=== PATIENT | female | born 1940 | race Caucasian/White ===

== ENCOUNTER → 2023-10-16 10:17 | Outpatient (REF) | payer OTHER, MEDICARE, SELFPAY ==
[2023-10-16 11:23] LABS: Vancomycin Trough 11.3 ug/ml (5-20)
[2023-10-16 11:46] LABS: Hematocrit 23.2 % (37.0-47.0); Hemoglobin 7.4 g/dL (12.0-16.0); Mean Corp Hgb Conc. 31.9 g/dL (33.0-37.0); Mean Corpuscular Hgb 27.6 pg (27.0-31.0); Mean Corpuscular Volume 86.6 fL (81.0-99.0); Mean Platelet Volume 9.5 fL (7.4-10.4); Platelet Count 588 10^3/uL (130-400); Red Blood Cell Count 2.68 10^6/uL (4.20-5.40); Red Cell Dist. Width 16.5 % (11.5-14.5); White Blood Cell Count 8.3 10^3/uL (4.8-10.8)
[2023-10-16 12:01] LABS: ALT (SGPT) 20 U/L (0-35); AST (SGOT) 27 U/L (14-36); Alkaline Phosphatase 92 U/L (38-126); Calcium 9.1 mg/dl (8.4-10.2); Carbon Dioxide 31 mmol/L (22-30); Chloride 98 mmol/L (98-107); Glucose 88 mg/dl (70-99); eGFR > 60.00
[2023-10-16 12:12] LABS: Albumin 2.1 g/dl (3.5-5.0); Blood Urea Nitrogen 13 mg/dl (7-17); Magnesium 1.9 mg/dl (1.6-2.3); Sodium 133 mmol/L (135-145); Total Bilirubin 0.2 mg/dl (0.2-1.3); Total Protein 4.3 g/dl (6.3-8.2)
== END ==
LOC: OLABWHC 10:17
PROVIDERS: ATTENDING PHYSICIAN Internal Medicine
DX: E87.6 Hypokalemia (principal); D72.829 Elevated white blood cell count, unspecified; Z79.2 Long term (current) use of antibiotics; I82.629 Acute embolism and thrombosis of deep veins of unspecified upper extremity
CPT/HCPCS: 36415; 80053; 80202; 83735; 85027

== ENCOUNTER 2023-10-24 14:07 | Inpatient (IN) | payer MEDICARE, SELFPAY ==
[2023-10-22] VITALS (7 sets, daily range): BP systolic 101–157; BP diastolic 52–86; BMI 19.6
--- NOTE | 2023-10-22 15:35 | ED.GENMED ---
History of Present Illness
General
Chief Complaint: Fever
Source: family and longterm
Exam Limitations: none
Time Seen by Provider: 10/22/23 15:09
Nursing documentation reviewed up to this point in time: agreed with
Travel History
Have you had any contact with someone who has COVID-19?: Unable to Answer
Do you have any symptoms of coronavirus? Fever > 100 degrees, chills, cough, shortness of breath, sore throat, loss of taste or smell, muscle aches, or headache?: Yes
Symptoms:: see triage note
History of Present Illness
History of Present Illness:
Patient to ED via EMS from longterm for concern of fever, bleeding from left leg wound. According to daughter, patient had MILD procedure in mid July for her chronic back pain. She was admitted to [facility] on Sep.09 for neck pain. After
xray, CT, MRI, labs, family was told patient had a small cyst in neck which was thought to be an abscess. She was placed on 2 antibiotics via PICC to left arm. According to daughter, patient developed a superficial clot to her arm and did not
require blood thinners, PICC was moved to [facility]. Diagnosed with pleural effusion and had thoracentesis x2. Afte 3 weeks at [facility] she was transported to [facility] [place]. 1 week later she returned to [facility] with fever. Family was told infection was now
noted in lumbar region and antibiotics were again prescribed. She was also noted to have increased swelling to her hands. US revealed DVT RUE. Placed on Eliquis approx 1 week ago. SHe was sent to [place] for rehab 1 week ago. 2 days ago she
fell, sustaining a skin tear to her left calf. Wound continues to ooze. Today she was noted to have a fever and descision was made to transfer to ED. Family did not want her to return to [facility]. Daughter state that since her first admission her lab
results have been off. SHe was seen by contract programmer while at [facility] and daughter states she was told that her lab results were a result of her infection. Daughter states labs have not returned to normal.
Past History
Past History
ED Past Medical History: Fibromyalgia, GERD, HTN, Hypercholesterolemia and Other (MVP, IBS, CHRONIC PANCREATITIS,OSTEOARTHRITIS, DVT, PLEURAL EFFUSION)
ED Past Surgical History: Cardiac (pacemaker)
Review of Systems
Review of Systems
Allergies reviewed?: Yes
All Other Systems: ROS reviewed and negative except as documented in HPI and ROS
Constitutional: Reports fever and fatigue
Respiratory: Reports no symptoms
Cardiac: Reports no symptoms
ABD/GI: Reports no symptoms
: Reports no symptoms
Musculoskeletal: Reports no symptoms
Skin: Reports other (Skin tear to left lower leg. Oozing blood)
Neurological: Reports weakness
Psychiatric: Reports no symptoms
Phy Exam
General Physical Exam
General Presentation: mild distress
General age: appears stated age
General Skin: warm and dry
General Habitus: normal
General Mental: alert
General Hydration: dry mucous membranes
Cardiovascular Exam
Cardiovascular Exam: regular rate/rhythm
Pulmonary Exam
Pulmonary Exam: no respiratory distress, chest non tender and decreased breath sounds
Gastrointestinal Exam
Gastrointestinal Exam: normal bowel sounds and non tender
Musculoskeletal Exam
Musculoskeletal Exam: full ROM and neuro vasc intact
Skin Exam
Skin Exam: normal color, warm/dry and other (7cm 'C' shaped skin tear to LLE. No redness or swelling. Continues to ooze blood)
Psychiatric Exam
Psychiatric Exam: normal mood/affect
Course
Orders/Labs/Results
Orders:
Orders
10/22/23 Dinner
Regular
At Your Request: Limited, Skein Dyer Required
10/22/23 15:28
Electrocardiogram (*1) Urgent
Reason for Study: Other
Other Reason for Exam: change in mental status
10/22/23 15:30
EKG- Treatment ONCE
10/22/23 15:32
COVID-19 Antigen Urgent
Source: Nasal Swab
PTT Urgent
Influenza A+B Rapid Molecular Urgent
JANUSZ Source: Nasal Swab
Specimen Description:
CR Chest - 2 Views Urgent
Comment:
Reason For Exam: fever
10/22/23 15:36
Blood Culture Routine
JANUSZ Source: Blood/Venous
Specimen Description:
10/22/23 15:37
Complete Blood Count/With Diff Urgent
Comprehensive Metabolic Panel Urgent
Lactic Acid Urgent
Lipase Urgent
10/22/23 15:41
Blood Culture Routine
JANUSZ Source: Blood/Venous
Specimen Description:
10/22/23 15:44
Acetaminophen 1000MG/100Ml [Ofirmev] 1,000 mg in 100 ml IV ONCE
Acetaminophen IV Indication:: No AZ & No Enteral Access
10/22/23 16:05
0.9% Sodium Chloride 1000 ml [Nss] 1,000 ml IV BOLUS
10/22/23 17:27
Potassium Chloride [KCl] 40 meq 0.9% Sodium Chloride 250 ml [Nss] 250 ml IV NOW
10/22/23 19:11
Urinalysis Reflex To Culture Urgent
Date Specimen was Collected: 10/22/23
Time Specimen was Collected: 18:58
Urine Microscopic Reflex Cult Urgent
10/22/23 20:08
Admit/Transfer Patient As Directed
Co-Sign Provider:
Level of Care: Observation services
Assign to:: Medical/Surgical
Physician / Group: Hospitalist
Diagnosis: Fever
10/22/23 20:11
Code Status As Directed
Resuscitation Status: Full Code
10/22/23 22:08
Acetaminophen [Tylenol] 650 mg PO Q4HPRN PRN
Apixaban [Eliquis] 5 mg PO Q12@1000,2200
Dicyclomine [Bentyl] 10 mg PO [id number] PRN
Docusate W/Senna [Senokot-S] 2 tablet PO HS
HYDROmorphone [Dilaudid] 0.5 mg PO Q6HPRN PRN
Magnesium Hydroxide [Milk of Magnesia] 30 ml PO HSPRN PRN
Nystatin Suspension [Mycostatin Oral Suspension] 5 ml PO QID
Temazepam [Restoril] 15 mg PO HS
ipratropium bromide 2 spray NASAL Q8HPRN PRN
10/22/23 22:08
INFECTIOUS DISEASE CONSULT Routine
Consulting Provider: Madyson Santiago
Was physician already notified: Yes
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
VTE Contraindication Routine
VTE Mechanical Device Contraindication: Medical Contraindication
Pharmocologic Contraindication: Medical Contraindication
Legionella Urinary Antigen Routine
JANUSZ Source: Urine
Specimen Description:
Activity As Directed
Activity Level: Out of Bed-Early Mobility
Intake/ Output As Directed
Frequency: Per unit guidelines
Vital Signs As Directed
Frequency: Per unit guidelines
Weight As Directed
Frequency: Once
Comment: on admission
O2 Therapy [RESP] Routine
Nasal Cannula Liter Flow: 2 LPM
Titrate/Wean O2 to maintain O2 sat greater than (%): 92
Special Instructions: Wean as tolerated
Pulse Ox/cont/shift [RESP] Routine
Quantity: 1
Rx Incentive Spirometry [RESP] Routine
Frequency: q1h while awake
Pt Eval And Treat Routine
Activity Level: With Assistance
10/23/23 06:00
Basic Metabolic Panel IN AM
Complete Blood Count/No Diff IN AM
ESR [Erythrocyte Sed Rate] IN AM
Magnesium IN AM
Procalcitonin IN AM
PCT Algorithmm Indication: Respiratory
Bisacodyl [Dulcolax] 10 mg RECTAL DAILY@0600 PRN
10/23/23 08:00
Atorvastatin [Lipitor] 10 mg PO DAILY
Celecoxib [Celebrex] 200 mg PO DAILY
Duloxetine Delayed Release [Cymbalta Delayed Release] 60 mg PO DAILY
Ferrous Sulfate [Feosol] 325 mg PO DAILY
Losartan [Cozaar] 100 mg PO DAILY
Pantoprazole [Protonix] 40 mg PO DAILY
Abnormal Lab Results
10/22/23 10/22/23 10/22/23
15:32 15:37 19:11
WBC 15.4 H 10^3/uL
(4.8-10.8)
RBC 2.85 L 10^6/uL
(4.20-5.40)
Hgb 7.6 L g/dL
(12.0-16.0)
Hct 23.8 L %
(37.0-47.0)
MCH 26.7 L pg
(27.0-31.0)
MCHC 31.9 L g/dL
(33.0-37.0)
RDW 16.2 H %
(11.5-14.5)
Plt Count 746 H D 10^3/uL
(130-400)
Abs Immat Gran (auto) 0.1 H 10^3/uL
(0-0.05)
Absolute Neuts (auto) 13.0 H 10^3/uL
(1.4-6.5)
Absolute Lymphs (auto) 1.1 L 10^3/uL
(1.2-3.4)
Absolute Monos (auto) 0.9 H 10^3/uL
(0.1-0.6)
Immature Gran % 0.8 H %
(0-0.5)
Neutrophils % 84.9 H %
(42.2-75.2)
Lymphocytes % 7.4 L %
(20.5-51.1)
APTT 42.4 H Sec
(23.4-35.0)
Sodium 128 L mmol/L
(135-145)
Potassium 3.0 L mmol/L
(3.5-5.1)
Chloride 97 L mmol/L
(98-107)
Creatinine 0.5 L mg/dL
(0.6-1.0)
Glucose 100 H mg/dl
(70-99)
Total Protein 4.7 L g/dl
(6.3-8.2)
Albumin 2.4 L g/dl
(3.5-5.0)
Lipase 19 L U/L
(23-300)
Urine Ketones 1+ A
(Negative)
Ur Occult Blood Reflex Trace A
(Negative)
Urine Bacteria (Reflex) Few A
(Negative)
10/22/23 15:37
10/22/23 15:37
Vital Signs
Initial and Last Documented VS:
Initial Vital Signs
Temp Pulse Resp BP Pulse Ox
101.4 F H 95 20 148/68 97
10/22/23 15:06 10/22/23 15:06 10/22/23 15:06 10/22/23 15:06 10/22/23 15:06
Last Documented Vital Signs
Temp Pulse Resp BP Pulse Ox
98.0 F 87 18 157/67 98
10/22/23 22:31 10/22/23 22:31 10/22/23 22:31 10/22/23 22:31 10/22/23 22:31
*Radiology
Radiology exam reviewed: radiology read reviewed
*Critical Care Note
Total Time (30-74mins, 75-104mins- exclusive of procedures): Not Applicable
Update Note
Update Note:
Patient to ED from [place] for fever, lethargy, hypoxemia, bleeding from left leg wound. Had MILD procedure mid july. September she was admitted to [facility] for severe neck pain. Diagnosed with spinal infections as per family. Recently placed back on
IV antibiotics for 'continued infections' as per family. IV Vancomycin daily, Aztreonam TID restarted on 10/12 and is scheduled for 18days in total. To ED today with 101.4 temp, lethargy.
ED Attending Note
-
Portions of this chart may have been created with voice recognition software.� Occasional wrong word or��sound alike� substitutions may have occurred due to the inherent limitations of voice recognition software.
Discharge Plan
Departure
Patient Disposition: Admit
Date of Disposition: 10/22/23
Time of Disposition: 18:27
Presentation/result/management discussed w/ accepting MD/DO: Hospitalist
Condition: Fair
Covid-19: Not Applicable
Discharge Problem:
Fever, Hypokalemia, Hyponatremia, Weakness
Interventions
Interventions:
*Risk Screen - Suicide Last Done: 10/22/23 15:06
*General Assessment Last Done: 10/22/23 15:06
*Neglect/Abuse Screening Last Done: 10/22/23 15:06
ED- Fall Risk Assessment Last Done: 10/22/23 16:04
*ED COVID-19 Vaccine History Last Done: 10/22/23 15:06
*Nursing Disposition Last Done: 10/22/23 21:54
ED- Neurological Assessment Last Done: 10/22/23 16:05
ED-Skin Assessment Last Done: 10/22/23 16:03
Discharge Date and Time
Discharge Date/Time: 10/22/23 22:12
[2023-10-22] MEDS: OFIRMEV 100 IV (15:47)
[2023-10-22 15:54] LABS: % Basophils 0.7 % (0-2); % Eosinophils 0.1 % (0-6); % Immature Granulocytes 0.8 % (0-0.5); % Lymphocytes 7.4 % (20.5-51.1); % Monocytes 6.1 % (1.7-9.3); % Neutrophils 84.9 % (42.2-75.2); Absolute Basophils 0.1 10^3/uL (0-0.2); Absolute Immature Granulocytes 0.1 10^3/uL (0-0.05); Absolute Lymphocytes 1.1 10^3/uL (1.2-3.4); Absolute Monocytes 0.9 10^3/uL (0.1-0.6); Hematocrit 23.8 % (37.0-47.0); Hemoglobin 7.6 g/dL (12.0-16.0); Mean Corp Hgb Conc. 31.9 g/dL (33.0-37.0); Mean Corpuscular Hgb 26.7 pg (27.0-31.0); Mean Corpuscular Volume 83.5 fL (81.0-99.0); Mean Platelet Volume 9.5 fL (7.4-10.4); Nucleated Red Blood Cells % 0 %; Platelet Count 746 10^3/uL (130-400); Red Blood Cell Count 2.85 10^6/uL (4.20-5.40); Red Cell Dist. Width 16.2 % (11.5-14.5); White Blood Cell Count 15.4 10^3/uL (4.8-10.8)
[2023-10-22 16:08] LABS: Lactic Acid 1.1 mmol/L (0.7-2.0)
[2023-10-22 16:08] LABS: APTT 42.4 Sec (23.4-35.0)
[2023-10-22] MEDS: NSS 1000 IV (16:08)
[2023-10-22 16:34] LABS: COVID-19 Antigen Negative (Negative)
[2023-10-22 16:55] LABS: ALT (SGPT) 13 U/L (0-35); AST (SGOT) 23 U/L (14-36); Albumin 2.4 g/dl (3.5-5.0); Alkaline Phosphatase 107 U/L (38-126); Blood Urea Nitrogen 12 mg/dl (7-17); Calcium 8.8 mg/dl (8.4-10.2); Carbon Dioxide 26 mmol/L (22-30); Chloride 97 mmol/L (98-107); Estimated Creatinine Clearance 65 ml/min; Glucose 100 mg/dl (70-99); Lipase 19 U/L (23-300); Sodium 128 mmol/L (135-145); Total Bilirubin 0.4 mg/dl (0.2-1.3); Total Protein 4.7 g/dl (6.3-8.2); eGFR > 60.00
[2023-10-22] MEDS: KCL 270 MEQ IV (19:11)
[2023-10-22 19:25] LABS: Urine Albumin Trace (Neg - Trace); Urine Bilirubin Negative (Negative); Urine Character Clear (Clear); Urine Color Yellow; Urine Glucose Negative (Negative); Urine Ketone 1+ (Negative); Urine Leukocyte Negative (Negative); Urine Nitrite Negative (Negative); Urine Occult Blood Trace (Negative); Urine Urobilinogen Negative (Neg - 1+)
[2023-10-22 19:44] LABS: Urine Bacteria Few (Negative)
[2023-10-22 19:46] LABS: Urine Red Blood Cell 0-2 /HPF (0-2)
--- NOTE | 2023-10-22 19:46 | HPS.HSE ---
Family Physician
-
Family Physician: Chau Singh
Chief Complaint
-
Fever
History of Present Illness
This is a 83-year-old female with extensive significant past medical history including status post pacemaker, chronic bilateral pleural effusions, mitral valve prolapse, osteoporosis, GERD, hyperlipidemia, venous thromboembolism on
long-term antibiotics for chronic vertebral infection presenting to the emergency department with fever from rehab home.
She has been on antibiotics for persistent tissue infection. Initially diagnosed with a small cyst in neck thought to be an abscess then later determined to have an infection of the L4/5 vertebrae. MRI in October showed persistent infection and
patient started on welder/fitter antibiotics. Initially on Vancomycin and cefepime but developed AMS with cefepime and changed to Aztreonam. Plan to complete 6 weeks of antibiotics. Had bilateral pleural effusions recently s/p thoracentesis on the
large left effusion. No infection or malignancy identified.
She was also noted to have increased swelling to her hands.� US revealed DVT RUE.� Placed on Eliquis approx 1 week ago.� SHe was sent to [place] for rehab 1 week ago.� 2 days ago she fell, sustaining a skin tear to her left calf.� Wound continues to
ooze.� Today she was noted to have a fever and descision was made to transfer to ED.� Family did not want her to return to [facility].�
Patient herself denies cough or shortness of breath (she is bed bound). She reports being straight catheted but unclear how often. She denies dysuria. She denies abdominal pain, nausea or vomiting. She denies any diarrhea.
On arrival in the ED he was febrile to 101.4, hemodynamic stable at 134/52 with a pulse of 90 respirate of 16 and oxygen saturation of 90 to 95% on room air. Chest x-ray shows bilateral pleural effusion with consolidation ruled out. CBC is notable
for a white count of 15.4 hemoglobin of 7.6 and platelets 146. Electrolytes notable for sodium of 138 potassium 3.0 with normal BUN/creatinine. Influenza testing was negative. COVID testing was negative.
Medical History
Past Medical History
Past Medical History: Reports GERD and HTN
Additional Past Medical History:
DVT
osteoporosis
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
s/p PPM
Past Surgical History: Reports None
Social History
Tobacco: Non-smoker
Alcohol: None
Drug: None
Personal:
Living: Alone
Employment: Retired
Family History
Family History: Not pertinent
Allergies / Home Medications
Allergies reflects when Allergies were last updated in [facility].
Home Medications with original date entered in [facility]
Allergy/Medication List:
Allergies
Allergy/AdvReac Type Severity Reaction Status Date / Time
clindamycin [From Cleocin] Allergy Unknown Verified 10/22/23 15:48
Penicillins Allergy Unknown Verified 10/22/23 15:48
Home Medications
acetaminophen 325 mg tablet (Tylenol) 650 mg PO Q6H PRN temp 100F or above/mild pain 10/22/23
apixaban 5 mg tablet 5 mg PO Q12H 10/22/23
atorvastatin 10 mg tablet 10 mg PO DAILY 10/22/23
aztreonam 2 gram solution for injection 2 g IV Q8H 10/22/23
bisacodyl 10 mg rectal suppository (Dulcolax (bisacodyl)) 10 mg MO DAILY@0600 PRN if no BM x 3 days 10/22/23
celecoxib 200 mg capsule 200 mg PO DAILY 10/22/23
denosumab 60 mg/mL subcutaneous syringe 60 mg SC [id number] 10/22/23
dicyclomine 10 mg capsule 10 mg PO [id number] PRN IBS 10/22/23
duloxetine 60 mg capsule,delayed release 60 mg PO DAILY 10/22/23
ferrous sulfate 325 mg (65 mg iron) tablet 325 mg PO DAILY 10/22/23
hydrochlorothiazide 12.5 mg tablet 12.5 mg PO DAILY 10/22/23
hydromorphone 2 mg tablet 2 mg PO Q6H PRN severe pain 10/22/23
ipratropium bromide 42 mcg (0.06 %) nasal spray 2 spray intranasal Q8HPRN PRN allergic rhinitis 10/22/23
losartan 100 mg tablet 100 mg PO DAILY 10/22/23
magnesium hydroxide 400 mg/5 mL oral suspension (Milk of Magnesia) 30 ml PO HSPRN PRN if no BM x 2 days 10/22/23
nystatin 100,000 unit/mL oral suspension 5 ml PO QID 10/22/23
pantoprazole 40 mg tablet,delayed release 40 mg PO DAILY 10/22/23
potassium chloride 20 mEq tablet,extended release 20 meq PO DAILY 10/22/23
sennosides 8.6 mg-docusate sodium 50 mg tablet 2 tab-cap PO HS 10/22/23
sodium phosphates 19 gram-7 gram/118 mL enema (Fleet Enema) 118 ml MO DAILYPRN PRN if no BM x 4 days 10/22/23
temazepam 15 mg capsule 15 mg PO HS 10/22/23
vancomycin 1,000 mg intravenous injection 1 g IV DAILY 10/22/23
Review of Systems
-
History Source: Patient and Family
Constitutional: Reports Fever
EENT: Reports No Symptoms
Respiratory: Reports No Symptoms
Cardiac: Reports No Symptoms
Abdomen/GI: Reports No Symptoms
: Reports No Symptoms
Musculoskeletal: Reports Joint Pain
Skin: Reports No Symptoms
Neurological: Reports Weakness
Endocrine: Reports No Symptoms
Hematologic/Lymphatic: Reports No Symptoms
Psych: Reports Anxiety
Physical Exam
Vital Signs
Vital Signs
Temp Pulse Resp BP Pulse Ox
101.4 F H 92 30 108/84 93
10/22/23 15:06 10/22/23 19:30 10/22/23 19:30 10/22/23 19:06 10/22/23 19:30
Physical Exam
General: Conversant, Pain and Appears Chronically Ill
HEENT: NormoCephalic, Anicteric and Atraumatic
Respiratory: Clear and Crackles
Cardiac: S1/S2 and Regular Rhythm
Breast: Deferred by me
GI: Soft, Non Tender, Non Distended and Normal Bowel Sounds
Rectal: Deferred by Provider
Genito-urinary: Deferred by me
Musculoskeletal: No Clubbing, No Cyanosis and No Edema
Skin: Warm
Neuro: AO x 3
Hematologic/Lymphatic: No Lymphadenopathy
Psych: Calm
Laboratory Results
-
10/22/23 15:37
10/22/23 15:37
Laboratory Results
APTT 42.4 Sec (23.4-35.0) H 10/22/23 15:32
Lactic Acid 1.1 mmol/L (0.7-2.0) 10/22/23 15:37
Total Bilirubin 0.4 mg/dl (0.2-1.3) 10/22/23 15:37
AST 23 U/L (14-36) 10/22/23 15:37
ALT 13 U/L (0-35) 10/22/23 15:37
Alkaline Phosphatase 107 U/L (38-126) 10/22/23 15:37
Lipase 19 U/L (23-300) L 10/22/23 15:37
Data Reviewed
-
Diagnostic Radiology: Image Personally Visualized and interpreted and Report Reviewed by me
Medical Tests (Nuc Med, Echo, EKG etc): Image Personally Visualized and interpreted and Report Reviewed by me
Lab Data: Labs Reviewed by me
Old Records: Reviewed
Impression/Plan
-
IMPRESSION:
Patient with complex past medical history coming from rehab with fever and hypoxia.
PLAN:
1. Fever/Osteo - Patient febrile to 101.4 on arrival in ED. She has bilateral pleural effusion/consolidation. No respiratory symptoms. Recurrent pleural effusion s/p recent thoracentesis w/o infectious findings. No urinary symptoms. No GI
symptoms. Negative influenza and covid. Already on Vancomycin and Aztreonam for infection at the L4/5. Persistent infection, drug fever, super-imposed viral/fungal infection on the differential. She is however hemodynamically stable and has no
other localizing signs.
- admit to med/surg
- blood cultures
- procal
- ESR/CRP
- urine cultures (U/A is equivocal for uti)
- w/o obvious source and with patient hemodynamically stable, will continue Vanc/Aztreonam for now. H/O psych reaction to cefepime.
- no diarrhea suggestive of CDIFF.
- Patient follows with Dr. Taylro Mathis for her chronic infection and was unable to reach her today. Will consult ID consult.
2. Hypoxia - Recurrent pleural effusions. However no acute respiratory symptoms. Oxygen saturation 90 - 95% on RA. No increased wob
- supplemental oxygen as needed
- incentive spirometer
3. DVT
- continue apixaban
4. Hypokalemia - Recurrent hypokalemia. Patient no obvious fluid losses but appears dehydrated.
- KCL IV in ED
- hold hctz, check mag, continue oral supplementation
5. Back pain
- continue acetaminophen, celecoxib and low dose hydromorphone (patient states only effective pain med to help her sleep)
6. Anemia - RAJINDER and likely ACD. Hgb stably at 7.6 on iron supplementation. Recent minor skin bleed.
- continue oral iron supplementation
DVT PPX - on apixaban
Full Code
--- NOTE | 2023-10-22 22:36 | PTCARENOTE ---
pt arrived from ed with IV potassium running, pulled over, aaox2- confused to time. bed alarm placed for safety, see MAR and assessment for further details. call singh within reach.
[2023-10-22] MEDS: AZACTAM 2000 MG IV (22:46)
[2023-10-22] MEDS: MYCOSTATIN ORAL SUSPENSION 5 ML PO (22:46)
[2023-10-22] MEDS: SENOKOT-S 2 TABLET PO (22:46)
[2023-10-22] MEDS: STERILE WATER FOR INJECTION 10 ML IV (22:46)
[2023-10-22] MEDS: ELIQUIS 5 MG PO (22:46)
[2023-10-22] MEDS: RESTORIL 15 MG PO (22:46)
[2023-10-22] MEDS: DILAUDID 0.5 MG PO (22:47)
[2023-10-23] VITALS (7 sets, daily range): BP systolic 119–168; BP diastolic 50–70
[2023-10-23 05:47] LABS: Mean Corpuscular Hgb 26.7 pg (27.0-31.0); Mean Corpuscular Volume 80.9 fL (81.0-99.0); Mean Platelet Volume 9.3 fL (7.4-10.4); Platelet Count 624 10^3/uL (130-400); Red Blood Cell Count 2.36 10^6/uL (4.20-5.40); Red Cell Dist. Width 15.9 % (11.5-14.5); White Blood Cell Count 8.9 10^3/uL (4.8-10.8)
[2023-10-23 05:59] LABS: Hematocrit 19.1 % (37.0-47.0); Hemoglobin 6.3 g/dL (12.0-16.0)
[2023-10-23] MEDS: AZACTAM 2000 MG IV ×3 (06:07→22:41)
[2023-10-23] MEDS: STERILE WATER FOR INJECTION 10 ML IV ×3 (06:07→22:41)
[2023-10-23 06:09] LABS: Blood Urea Nitrogen 13 mg/dl (7-17); Calcium 8.7 mg/dl (8.4-10.2); Carbon Dioxide 26 mmol/L (22-30); Chloride 100 mmol/L (98-107); Estimated Creatinine Clearance 61 ml/min; Glucose 83 mg/dl (70-99); Magnesium 1.6 mg/dl (1.6-2.3); Potassium 3.7 mmol/L (3.5-5.1); Sodium 132 mmol/L (135-145); eGFR > 60.00
[2023-10-23 06:13] LABS: Procalcitonin 0.28 ng/ml (0.0-0.25)
--- NOTE | 2023-10-23 06:18 | W.PN.UPDATE ---
Addendum entered and electronically signed by CAMPBELL Gao 10/23/23 06:53:
blood consent obtained. risks and benefits explained.
pt denies black or bloody stools.
LLE wound clean dry and without bloody drainage though pt did state when it happened (fri or sat) it took a long time for bleeding to stop
Original Note:
Update Note
Progress Note Update
This morning HH 6.3/19.1 from 7.6/ 23.8
No evidence of bleeding
Did receive 1 L IVF in Ed ? dilutional
Hemodynamically stable
IS on Eliquis and celebrex--> will hold in the interm for now
Recheck HH, get T+S, iron studies, hemetest stools
[2023-10-23 06:48] LABS: Erythrocyte Sed Rate 136 mm/hour (0-20)
[2023-10-23 06:59] LABS: Hematocrit 20.4 % (37.0-47.0); Hemoglobin 6.7 g/dL (12.0-16.0)
[2023-10-23 07:01] LABS: Iron 30 ug/dl (37-170)
[2023-10-23 07:12] LABS: Percent Saturation 20 % (20-50); Total Iron Binding Capacity 143 ug/dl (265-497)
[2023-10-23] MEDS: VANCOCIN 200 IV (08:50)
[2023-10-23] MEDS: PROTONIX 40 MG PO (08:51)
[2023-10-23] MEDS: FEOSOL 325 MG PO (08:51)
[2023-10-23] MEDS: COZAAR 100 MG PO (08:51)
[2023-10-23] MEDS: MYCOSTATIN ORAL SUSPENSION 5 ML PO ×3 (08:51→17:41)
[2023-10-23] MEDS: LIPITOR 10 MG PO (08:51)
[2023-10-23] MEDS: CYMBALTA DELAYED RELEASE 60 MG PO (08:51)
[2023-10-23] MEDS: DILAUDID 0.5 MG PO ×2 (09:06→18:38)
--- NOTE | 2023-10-23 11:26 | PTCARENOTE ---
this nurse noted at 15 min post start of blood transfusion assessment patient's temp raised from 98.0 to 99.3. on floor and made aware verbally. No interventions at this time. Will continue to monitor.
--- NOTE | 2023-10-23 12:03 | CON.ID ---
Consultation
-
Date/Time Consultation Requested: 10/22/2023 2208
Date/Time Consultation Performed: 10/23/2023 1200
Requesting Provider: Dr. Moise
Performing Provider: Dr. Quinones
Reason for Consultation: Fever; history of L4/5 vertebral osteo
Chief Complaint / Past History
History of Present Illness
Shannon Hinojosa is an 83-year-old female being seen at the request of Dr. Moise regarding fever and history of vertebral osteo-. History is obtained from chart review, along with patient interview, and review of records contained in the hospital EMR
system.
According to the , the patient underwent a 'MILD' procedure on her low back in July 2023. In August or September, she was diagnosed with a cyst in the cervical area, and was later determined to have an infection from the L4-5 vertebrae.
The patient's reports that she had a biopsy at the site, which did not show any bacteria, and she was placed initially on cefepime and vancomycin. She subsequently developed a encephalopathy deemed secondary to the cefepime, and she was
transition to aztreonam. Antibiotics were to continue through 10/31/2023.
She recently (1 to 2 weeks ago) presented to an OSH following the development of generalized swelling in her hands. An ultrasound revealed a DVT in the right upper extremity, and she was placed on Eliquis. She was then discharged to [facility] to receive rehab approximately 1 week ago. Approximately 2 days ago she sustained a fall, developing a skin tear to her left calf. Yesterday she was noted to have a fever and she was transferred to [facility] as the family
did not want her to return to [facility].
At this time she notes ongoing low back pain, but states that it is not around her prior biopsy site. At admission she was noted to have a fever to 101.4, but she has been afebrile since that time. She additionally initially had a white count of
15.4, which has normalized today.
She denies any cough or congestion. She denies any abdominal pain. She notes diffuse low back pain.
Past History
Additional Past Medical History:
Fibromyalgia
GERD
HTN
Dyslipidemia
MVP BS
Chronic pancreatitis
Osteoarthritis
DVT
Pleural effusion
Additional Past Surgical History:
PPM
Allergy History:
clindamycin [From Cleocin] Allergy (Verified 10/22/23 15:48)
Unknown
Penicillins Allergy (Verified 10/22/23 15:48)
Unknown
Medications Reviewed: Yes
Current Antibiotics:
Aztreonam 2 g IV every 8 hours
Vancomycin (dosed per pharmacy
Social History
Tobacco: Former Smoker
Alcohol: None
Drug: None
Personal:
Living: With Family
Employment: Retired
Family History
Family History: Not Pertinent
Review of Systems
Vital Signs
Temp Pulse Resp BP Pulse Ox
99.3 F 95 16 158/67 98
10/23/23 11:11 10/23/23 11:11 10/23/23 11:11 10/23/23 11:11 10/23/23 07:00
Physical Exam
Physical Exam
Constitutional: Comfortable, Chronically Ill and Non-toxic
Head: Normocephalic
Eyes: Pupils Equal, Pupils Round, No Conjunctival Hemorrhage and Sclera Anicteric
Oral: No Thrush and No Ulcers
Cardiovascular: Regular Rate, S1/S2 and Murmur; Negative S3/S4
Pulmonary: Clear; Negative Wheezes or Rales
Gastrointestinal: Soft, Non Tender, Non Distended, Normal Bowel Sounds, No Rebound and No Guarding
Genito-Urinary: Negative Aguiar
Extremities: Negative Edema, Cyanosis or Erythema
Musculoskeletal: Negative Joint Swelling, Joint Effusion or Spinal Tenderness
Skin: Warm and Dry; Negative Rash or Jaundice
Neurological: Awake, Alert and Oriented
Psychological: Calm
.
Lab / Diagnostic Study Results
10/23/23 06:39
10/23/23 05:18
Abs Immat Gran (auto) 0.1 10^3/uL (0-0.05) H 10/22/23 15:37
Absolute Neuts (auto) 13.0 10^3/uL (1.4-6.5) H 10/22/23 15:37
Absolute Lymphs (auto) 1.1 10^3/uL (1.2-3.4) L 10/22/23 15:37
Absolute Monos (auto) 0.9 10^3/uL (0.1-0.6) H 10/22/23 15:37
Absolute Basos (auto) 0.1 10^3/uL (0-0.2) 10/22/23 15:37
Immature Gran % 0.8 % (0-0.5) H 10/22/23 15:37
Neutrophils % 84.9 % (42.2-75.2) H 10/22/23 15:37
Lymphocytes % 7.4 % (20.5-51.1) L 10/22/23 15:37
Monocytes % 6.1 % (1.7-9.3) 10/22/23 15:37
Eosinophils % 0.1 % (0-6) 10/22/23 15:37
Basophils % 0.7 % (0-2) 10/22/23 15:37
ESR 136 mm/hour (0-20) H 10/23/23 05:18
Lactic Acid 1.1 mmol/L (0.7-2.0) 10/22/23 15:37
Procalcitonin 0.28 ng/ml (0.0-0.25) H 10/23/23 05:18
Ur Squamous Epith Cells 3-5 /LPF (Few) 10/22/23 19:11
Microbiology Results
Micro:
10/23/23 06:20 MRSA Screen - Pending
Nose
10/22/23 15:32 Influenza Types A & B (PRIYA) - Final
Nasal Swab Negative for Influenza A & B, NAAT
Negative results must be combined with clinical observations
and patient history.
Nucleic Acid Amplification test (NAAT)performed on the
[employer] NOW platform.
10/22/23 15:41 Blood Culture - Pending
Blood/Venous
10/22/23 15:36 Blood Culture - Pending
Blood/Venous
Imaging:
10/22/2023 CXR (2 view): Right PICC terminates over the cavoatrial junction. Dual-lead pacemaker in place. Small bilateral pleural effusions are noted with associated consolidation. No overt pulmonary vascular congestion noted. Please see full
dictation for additional detail. Film personally viewed.
Assessment / Plan
Episode of fever
Leukocytosis
- improved
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
- On Vanco / azactam through 10/31/23
Elevated ESR
Anemia
Fibromyalgia
GERD
HTN
Dyslipidemia
MVP BS
Chronic pancreatitis
Osteoarthritis
DVT
Pleural effusion
Recommendations:
Continue with vancomycin and aztreonam for now.
Will obtain records from [facility] for review.
Follow WBC / temps. Follow vancomycin levels.
--- NOTE | 2023-10-23 12:38 | W.PN.HOSP.TC ---
Today's Communication/Plan
-
Continue antibiotics
Obtain records of recent stay from [facility]
transfuse 1 u prbc
check stool for blood/iron panel
Assessment / Plan
Assessment / Plan
1. Fever episode
Lumbar spinal osteomyelitis
-Patient has been diagnosed for L4-L5 osteomyelitis at [facility] in , on IV vanc/aztreonam for 6 weeks - records requested
-Patient sent in from rehab for having recurrence episode of fever, patient declined to be transferred to [facility]
-UA clear. Flu/COVID neg. chest x-ray showing small bilateral effusion with associated atelectasis
-Blood culture collected in ER.
-Possible differential of complication of osteomyelitis versus drug fever versus VTE related
-ID have been asked to evaluate as well
2. Acute microcytic anemia - unknown baseline
-Hbg drifted down to 6.7 today
-Have history of GERD, no history of PUD. Have endoscopy in the past although no records available
-Check occult blood in stool. Check iron panel with morning labs
-Patient already on iron supplement at home and may have iron deficiency anemia
-Getting 1 unit of blood transfusion
3. Generalized weakness
-Required 2 person assistance per spouse, PT eval ordered
4. RUE DVT
-recent dx, need to hold eliquis with anemia
Essential hypertension
Hyperlipidemia
Osteoporosis
Depression/anxiety
Insomnia
DVT PPX - scd
Full code
Obtain records from [facility].
Anticipated Discharge: 24 - 48 hours
Subjective/Interval History
-
Date of Service: October 23, 2023
Resting comfortably in bed
Denies having any significant back pain
no acute issues reported
Objective Data
-
Labs:
Laboratory Results
10/23/23 10/23/23
05:18 06:39
WBC 8.9
Hgb 6.3 L* 6.7 L*
Hct 19.1 L* 20.4 L*
Plt Count 624 H
Sodium 132 L
Potassium 3.7
Chloride 100
Carbon Dioxide 26
BUN 13
Creatinine 0.4 L
Glucose 83
Calcium 8.7
Vital Signs:
Vital Signs
Temp Pulse Resp BP Pulse Ox
99.3 F 95 16 158/67 98
10/23/23 11:11 10/23/23 11:11 10/23/23 11:11 10/23/23 11:11 10/23/23 07:00
I&O
10/22/23 10/23/23 10/24/23
06:59 06:59 06:59
Intake Total 0 / 0
Balance 0 / 0
Review of Systems
-
Respiratory: Reports No Symptoms
Cardiac: Reports No Symptoms
Abdomen/GI: Reports No Symptoms
Physical Exam
-
General: Appears Chronically Ill and Cachectic; Negative Respiratory Distress
HEENT: Oxygen
Respiratory: Clear to Auscultation
Cardiac: Regular Rhythm and S1/S2; Negative Murmur
GI: Soft, Nontender and Nondistended
Neuro: Awake, Alert and Oriented
Psych: Calm
--- NOTE | 2023-10-23 13:24 | PHA.VAN.IN ---
Assessment
- Assessment
Renal Function: Appears similar to baseline
Concomitant Antimicrobials: aztreonam
Laboratory Tests
10/16/23
06:10
Vancomycin Trough 11.3
Patient had level drawn 10/15 as a trough that appears to be an appropriate value, unclear duration of current dosing regimen and timing of dose prior to level
AUC Dosing Plan
- Empiric Dosing
Maintenance Regimen: continue Vanc 1000mg Q24H based on outpatient regimen
will adjust administration time slightly to 0600 for inpatient lab monitoring
- Monitoring
Trough level is ordered to be drawn (date/time): 10/23 05:30 (appears to have been ~1 week since last level)
Pharmacokinetics Vancomycin I
- -
Patient Age: 83
Patient Sex: Female
Vancomycin Day #: 1 (On prior to admission, planned through 10/30)
Indication: Bone And Joint
Requesting Provider: Dr. Quinones
Pertinent Antimicrobial Allergies:
clindamycin - unknown
penicllins - unknown
Height / Weight:
Height 5 ft 6 in
Actual Weight 55.083 kg
IBW in k.3
Pertinent Past Medical History: BMI < 20
- Vital Signs / Lab Results
Temp Pulse Resp BP Pulse Ox
98.9 F 99 16 157/70 98
10/23/23 13:20 10/23/23 13:20 10/23/23 13:20 10/23/23 13:20 10/23/23 07:00
Lab Results - Hematology
10/22/23 10/22/23 10/23/23
15:28 15:37 05:18
WBC Cancelled 15.4 H 8.9
Lab Results - Chemistry
10/22/23 10/22/23 10/23/23
15:28 15:37 05:18
BUN Cancelled 12 13
Creatinine Cancelled 0.5 L 0.4 L
Estimated Creat Clear Cancelled 65 61
Albumin Cancelled 2.4 L
10/22/23 10/22/23
15:28 15:37
Lactic Acid Cancelled 1.1
Lab Results - Urine
10/22/23
19:11
Urine Nitrite (Reflex) Negative
Leukocyte Esterase Rfl Negative
Urine WBC (Reflex) 6-10
Ur Squamous Epith Cells 3-5
Urine Bacteria (Reflex) Few A
Microbiology Results
10/22/23 15:32 Influenza Types A & B (PRIYA) - Final
Nasal Swab Negative for Influenza A & B, NAAT
Negative results must be combined with clinical observations
and patient history.
Nucleic Acid Amplification test (NAAT)performed on the
[employer] NOW platform.
[2023-10-23] MEDS: RESTORIL 15 MG PO (21:12)
[2023-10-23] MEDS: MYCOSTATIN ORAL SUSPENSION PO ×2 (21:12→21:16)
[2023-10-23] MEDS: SENOKOT-S PO (21:12)
[2023-10-23] MEDS: TYLENOL 650 MG PO (23:52)
[2023-10-24 06:55] LABS: % Eosinophils 2.2 % (0-6); % Immature Granulocytes 1.8 % (0-0.5); % Lymphocytes 9.6 % (20.5-51.1); % Monocytes 8.1 % (1.7-9.3); % Neutrophils 77.3 % (42.2-75.2); Absolute Basophils 0.1 10^3/uL (0-0.2); Absolute Eosinophils 0.2 10^3/uL (0-0.7); Absolute Immature Granulocytes 0.2 10^3/uL (0-0.05); Absolute Lymphocytes 0.9 10^3/uL (1.2-3.4); Absolute Monocytes 0.7 10^3/uL (0.1-0.6); Absolute Neutrophils 7.1 10^3/uL (1.4-6.5); Hematocrit 24.3 % (37.0-47.0); Mean Corp Hgb Conc. 32.9 g/dL (33.0-37.0); Mean Corpuscular Hgb 27.7 pg (27.0-31.0); Mean Corpuscular Volume 84.1 fL (81.0-99.0); Mean Platelet Volume 9.5 fL (7.4-10.4); Nucleated Red Blood Cells % 0 %; Platelet Count 574 10^3/uL (130-400); Red Blood Cell Count 2.89 10^6/uL (4.20-5.40); Red Cell Dist. Width 15.4 % (11.5-14.5); White Blood Cell Count 9.1 10^3/uL (4.8-10.8)
[2023-10-24 07:00] VITALS: BP 120/60
[2023-10-24 07:20] LABS: Iron 29 ug/dl (37-170)
[2023-10-24] MEDS: AZACTAM 2000 MG IV ×3 (07:22→21:59)
[2023-10-24] MEDS: STERILE WATER FOR INJECTION 10 ML IV ×3 (07:23→21:59)
[2023-10-24] MEDS: VANCOCIN 200 IV (07:37)
[2023-10-24 08:04] VITALS: BP 120/60
--- NOTE | 2023-10-24 09:07 | PHA.VAN.FU ---
Vancomycin Assessment / Plan
- Assessment
Renal Function: Stable
WBC's are: WNL
In the past 24 hrs, patient has been: Afebrile
Concomitant Antimicrobials: aztreonam
- Assessment - Trough Based Monitoring
Trough Value: 9
Level Today was: Appropriate
Level Comments: drawn ~21H after previous dose of 1000mg
Patient likely to have additional clearance --> extrapolates to trough of 7.6 using population PK at 24H instead of 21H
- Dosing Plan
Adjust Regimen to: Vanc 1250mg Q24H
New Regimen Predicts: Trough (11.25)
Dosing Comments: will tentatively increase dose slightly given low trough
- Monitoring Plan
No level(s) ordered at this time: consider repeat levels in next few days
- Follow Up
Pharmacy will continue to follow.
Vancomycin Follow UP
- -
Patient Age: 83
Patient Sex: Female
Vancomycin Day #: 11 (started 10/13 per med rec to complete 10/31)
Indication: Bone And Joint
Requesting Provider: Dr. Quinones
Pertinent Antimicrobial Allergies:
clindamycin - unknown
penicllins - unknown
Height / Weight:
Height 5 ft 6 in
Actual Weight 55.083 kg
IBW in k.3
Pertinent Past Medical History: BMI < 20
- Vital Signs / Lab Results
Temp Pulse Resp BP Pulse Ox
97.4 F 81 16 120/60 97
10/24/23 07:00 10/24/23 07:00 10/24/23 07:00 10/24/23 07:00 10/24/23 07:00
Lab Results - Hematology
10/22/23 10/22/23 10/23/23
15:28 15:37 05:18
WBC Cancelled 15.4 H 8.9
03/19/24
05:59
WBC 9.1
Lab Results - Chemistry
10/22/23 10/22/23 10/23/23
15:28 15:37 05:18
BUN Cancelled 12 13
Creatinine Cancelled 0.5 L 0.4 L
Estimated Creat Clear Cancelled 65 61
Albumin Cancelled 2.4 L
10/22/23 10/22/23
15:28 15:37
Lactic Acid Cancelled 1.1
Microbiology Results
10/23/23 06:20 MRSA Screen - Final
Nose No Methicillin Resistant Staphylococcus aureus isolated.
10/22/23 15:41 Blood Culture - Preliminary
Blood/Venous No Growth in 24 hours- Final report to follow
10/22/23 15:36 Blood Culture - Preliminary
Blood/Venous No Growth in 24 hours- Final report to follow
10/22/23 15:32 Influenza Types A & B (PRIYA) - Final
Nasal Swab Negative for Influenza A & B, NAAT
Negative results must be combined with clinical observations
and patient history.
Nucleic Acid Amplification test (NAAT)performed on the
[employer] platform.
Therapeutic Drug Monitoring
Vancomycin Trough 9.0 ug/ml (5-20) 10/24/23 05:59
[2023-10-24] MEDS: PROTONIX 40 MG PO (09:10)
[2023-10-24] MEDS: COZAAR 100 MG PO (09:10)
[2023-10-24] MEDS: FEOSOL 325 MG PO (09:10)
[2023-10-24] MEDS: CYMBALTA DELAYED RELEASE 60 MG PO (09:11)
[2023-10-24] MEDS: MYCOSTATIN ORAL SUSPENSION 5 ML PO ×3 (09:11→17:05)
[2023-10-24] MEDS: LIPITOR 10 MG PO (09:11)
[2023-10-24 12:38] VITALS: BP 153/73; PULSE 85; O2SAT 100
[2023-10-24 14:01] VITALS: BP 153/73; PULSE 84; O2SAT 99
--- NOTE | 2023-10-24 14:41 | CM ---
CM met with pt and her daughter at bedside
Pt admitted from [facility]. Prior to going to snf pt was inpatient at [facility]
Before initial admission, pt was living with her in independent living at [facility] in [place]. Pt reports she was independent and active before her admission to [facility].
Pt seen by OT. PT to evaluate. OT recommending SNF. Per pt and daughter, pt does not want to return to [place]
Pt and daughter given list of facilities to review from Medicare.gov
CM will follow up with pts daughter on choices for snf
Plan - d/c to snf (TBD) when medically stable
--- NOTE | 2023-10-24 15:11 | W.PN.HOSP.TC ---
Today's Communication/Plan
-
continue current abx
monitor T curve
obtain records from [facility]
Assessment / Plan
Assessment / Plan
1. Fever episode
Lumbar spinal osteomyelitis
-Patient has been diagnosed for L4-L5 osteomyelitis at [facility] in , on IV vanc/aztreonam for 6 weeks - records requested
-Patient sent in from rehab for having recurrence episode of fever, patient declined to be transferred to [facility]
-UA clear. Flu/COVID neg. chest x-ray showing small bilateral effusion with associated atelectasis
-Blood culture neg so far.
-Possible differential of complication of osteomyelitis versus drug fever versus VTE related
-ID have been asked to evaluate as well
2. Acute microcytic anemia - unknown baseline
-Hbg drifted down to 6.7 > 1 u prbc and hbg 8 today
-Have history of GERD, no history of PUD. Have endoscopy in the past although no records available
-Stool test neg. Ferritin 700 - ESR elevated 136 and likely anemia of chronic disease
-Monitor hbg - will resume back eliquis
3. Generalized weakness
-Required 2 person assistance per spouse, PT/OT eval ordered
-patient/family wants to try different rehab
4. RUE DVT
-recent dx, will resume Eliquis back if patient hbg stable.
Essential hypertension
Hyperlipidemia
Osteoporosis
Depression/anxiety
Insomnia
DVT PPX - scd
Full code
Obtain records [place] [facility] [place]
Case discussed with ID
Patient daughter at bedside and case discussed.
Anticipated Discharge: 24 - 48 hours
Subjective/Interval History
-
Date of Service: October 24, 2023
mild borderline fever
denies of having back pain
poor appetite
Objective Data
-
Labs:
Laboratory Results
10/24/23
05:59
WBC 9.1
Hgb 8.0 L
Hct 24.3 L
Plt Count 574 H
Vital Signs:
Vital Signs
Temp Pulse Resp BP Pulse Ox
97.4 F 81 16 132/70 97
10/24/23 07:00 10/24/23 07:00 10/24/23 07:00 10/24/23 09:10 10/24/23 07:00
I&O
10/23/23 10/24/23 10/25/23
06:59 06:59 06:59
Intake Total 1090 / 1090
Balance 1090 / 1090
Review of Systems
-
Respiratory: Reports No Symptoms
Cardiac: Reports No Symptoms
Abdomen/GI: Reports No Symptoms
Physical Exam
-
General: Appears Chronically Ill and Cachectic; Negative Respiratory Distress
HEENT: Oxygen
Respiratory: Clear to Auscultation
Cardiac: Regular Rhythm and S1/S2; Negative Murmur
GI: Soft, Nontender and Nondistended
Neuro: Awake, Alert and Oriented
Psych: Calm
--- NOTE | 2023-10-24 15:18 | W.PN.ID1 ---
Date of Service
Date of Service: October 24, 2023
Today's Communication
Continue abx.
Assessment / Plan
Episode of fever
Leukocytosis
- improved
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
- On Vanco / azactam through 10/31/23
Elevated ESR
Anemia
Fibromyalgia
GERD
HTN
Dyslipidemia
MVP BS
Chronic pancreatitis
Osteoarthritis
DVT
Pleural effusion
Recommendations:
Continue with vancomycin and aztreonam for now.
Awaiting records from [place] for review. Requested yesterday; have not received as of yet.
Follow WBC / temps. Follow vancomycin levels.
Chief Complaint
-: Fever
Subjective / Review of Systems
Review of Systems: No Fever and No Headache
Vital Signs / Physical Exam
Vital Signs
Vital Signs
Temp Pulse Resp BP Pulse Ox
97.4 F 81 16 132/70 97
10/24/23 07:00 10/24/23 07:00 10/24/23 07:00 10/24/23 09:10 10/24/23 07:00
Physical Exam
Constitutional: No Acute Distress, Comfortable, Chronically Ill and Non-toxic
Eyes: No Conjunctival Hemorrhage and Sclera Anicteric
Cardiovascular: S1/S2; Negative S3/S4
Pulmonary: Non Labored
Gastrointestinal: Soft and Non Tender
Neurological: Awake and Alert
Psychological: Calm
Lines: PICC (RUE)
Objective Data
Lab Data
Lab Results
10/24/23 05:59
10/23/23 05:18
ESR 136 mm/hour (0-20) H 10/23/23 05:18
APTT 42.4 Sec (23.4-35.0) H 10/22/23 15:32
Estimated Creat Clear 61 ml/min 10/23/23 05:18
Lactic Acid 1.1 mmol/L (0.7-2.0) 10/22/23 15:37
Total Bilirubin 0.4 mg/dl (0.2-1.3) 10/22/23 15:37
AST 23 U/L (14-36) 10/22/23 15:37
ALT 13 U/L (0-35) 10/22/23 15:37
Alkaline Phosphatase 107 U/L (38-126) 10/22/23 15:37
Most recent labs reviewed.
Micro Results:
10/23/23 06:20 MRSA Screen - Final
Nose No Methicillin Resistant Staphylococcus aureus isolated.
10/22/23 15:41 Blood Culture - Preliminary
Blood/Venous No Growth in 24 hours- Final report to follow
10/22/23 15:36 Blood Culture - Preliminary
Blood/Venous No Growth in 24 hours- Final report to follow
10/22/23 15:32 Influenza Types A & B (PRIYA) - Final
Nasal Swab Negative for Influenza A & B, NAAT
Negative results must be combined with clinical observations
and patient history.
Nucleic Acid Amplification test (NAAT)performed on the
[employer] platform.
Imaging:
10/22/2023 CXR (2 view): Right PICC terminates over the cavoatrial junction. Dual-lead pacemaker in place. Small bilateral pleural effusions are noted with associated consolidation. No overt pulmonary vascular congestion noted. Please see full
dictation for additional detail. Film personally viewed.
Care Review
Total Time Spent with Patient (in minutes): Hospitalist
[2023-10-24 15:20] VITALS: BP 163/73
[2023-10-24] MEDS: DILAUDID 0.5 MG PO (20:17)
[2023-10-24] MEDS: RESTORIL 15 MG PO (21:44)
[2023-10-24] MEDS: SENOKOT-S PO (21:44)
[2023-10-24] MEDS: MYCOSTATIN ORAL SUSPENSION PO (21:44)
[2023-10-24 23:40] VITALS: BP 146/61
[2023-10-25] MEDS: DILAUDID 0.5 MG PO ×2 (04:20→21:14)
[2023-10-25] MEDS: VANCOCIN 275 MG IV (05:47)
[2023-10-25] MEDS: AZACTAM 2000 MG IV ×2 (06:00→14:30)
[2023-10-25] MEDS: STERILE WATER FOR INJECTION 10 ML IV ×2 (06:00→14:30)
[2023-10-25 07:00] VITALS: BP 172/74
[2023-10-25] MEDS: MYCOSTATIN ORAL SUSPENSION 5 ML PO ×2 (08:13→14:30)
[2023-10-25] MEDS: COZAAR 100 MG PO (08:13)
[2023-10-25] MEDS: LIPITOR 10 MG PO (08:13)
[2023-10-25] MEDS: PROTONIX 40 MG PO (08:13)
[2023-10-25] MEDS: CYMBALTA DELAYED RELEASE 60 MG PO (08:13)
[2023-10-25] MEDS: FEOSOL 325 MG PO (08:13)
--- NOTE | 2023-10-25 09:16 | PHA.VAN.FU ---
Vancomycin Assessment / Plan
- Assessment
Renal Function: No New Labs Today
In the past 24 hrs, patient has been: Afebrile
Concomitant Antimicrobials: aztreonam
- Dosing Plan
Continue: Vanc 1250mg Q24H
- Monitoring Plan
No level(s) ordered at this time: may consider levels in next few days
- Follow Up
Pharmacy will continue to follow.
Vancomycin Follow UP
- -
Patient Age: 83
Patient Sex: Female
Vancomycin Day #: 12 (started 10/13 per med rec to complete 10/31)
Indication: Bone And Joint
Requesting Provider: Dr. Quinones
Pertinent Antimicrobial Allergies:
clindamycin - unknown
penicllins - unknown
Height / Weight:
Height 5 ft 6 in
Actual Weight 55.083 kg
IBW in k.3
Pertinent Past Medical History: BMI < 20
- Vital Signs / Lab Results
Temp Pulse Resp BP Pulse Ox
98.3 F 92 17 172/74 95
10/25/23 07:00 10/25/23 08:13 10/25/23 07:00 10/25/23 08:13 10/25/23 07:00
Lab Results - Hematology
10/22/23 10/22/23 10/23/23
15:28 15:37 05:18
WBC Cancelled 15.4 H 8.9
10/24/23
05:59
WBC 9.1
Lab Results - Chemistry
10/22/23 10/22/23 10/23/23
15:28 15:37 05:18
BUN Cancelled 12 13
Creatinine Cancelled 0.5 L 0.4 L
Estimated Creat Clear Cancelled 65 61
Albumin Cancelled 2.4 L
10/22/23 10/22/23
15:28 15:37
Lactic Acid Cancelled 1.1
Microbiology Results
10/22/23 15:36 Blood Culture - Preliminary
Blood/Venous No Growth in 48 hours- Final report to follow
10/22/23 15:41 Blood Culture - Preliminary
Blood/Venous No Growth in 48 hours- Final report to follow
10/23/23 06:20 MRSA Screen - Final
Nose No Methicillin Resistant Staphylococcus aureus isolated.
Therapeutic Drug Monitoring
Vancomycin Trough 9.0 ug/ml (5-20) 10/24/23 05:59
--- NOTE | 2023-10-25 09:41 | CM ---
Spoke with pts daughter Carolyn [phone] regarding SNF choices
Obtained multiple choices - First choice is [facility]
Referral sent in [facility]
Plan - d/c to snf when medically stable and accepted at facility
--- NOTE | 2023-10-25 10:07 | W.PN.ID1 ---
Date of Service
Date of Service: October 25, 2023
Today's Communication
Continue antibiotics per
Assessment / Plan
Episode of fever
- none since admission
Leukocytosis
- improved
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
- On Vanco / azactam (through 10/31/23).
- Followed by [facility].
Elevated ESR
Anemia
Fibromyalgia
GERD
HTN
Dyslipidemia
MVP BS
Chronic pancreatitis
Osteoarthritis
DVT
Pleural effusion
Recommendations:
Continue with vancomycin and aztreonam for now.
Awaiting records from [place] for review. Requested 2 days ago; have not received as of yet. Request resent.
Follow WBC / temps. Follow vancomycin levels.
Chief Complaint
-: Fever
Subjective / Review of Systems
Patient seen and examined. Reports feeling some nausea today. No fevers or chills.
Vital Signs / Physical Exam
Vital Signs
Vital Signs
Temp Pulse Resp BP Pulse Ox
98.3 F 92 17 172/74 95
10/25/23 07:00 10/25/23 08:13 10/25/23 07:00 10/25/23 08:13 10/25/23 07:00
Physical Exam
Constitutional: No Acute Distress, Comfortable and Non-toxic
Eyes: No Conjunctival Hemorrhage and Sclera Anicteric
Cardiovascular: S1/S2; Negative S3/S4
Pulmonary: Non Labored; Negative Wheezes or Rales
Gastrointestinal: Soft, Non Tender and Non Distended
Skin: Warm; Negative Rash or Jaundice
Neurological: Awake and Alert
Psychological: Calm
Objective Data
Lab Data
Lab Results
10/24/23 05:59
10/23/23 05:18
ESR 136 mm/hour (0-20) H 10/23/23 05:18
APTT 42.4 Sec (23.4-35.0) H 10/22/23 15:32
Estimated Creat Clear 61 ml/min 10/23/23 05:18
Lactic Acid 1.1 mmol/L (0.7-2.0) 10/22/23 15:37
Total Bilirubin 0.4 mg/dl (0.2-1.3) 10/22/23 15:37
AST 23 U/L (14-36) 10/22/23 15:37
ALT 13 U/L (0-35) 10/22/23 15:37
Alkaline Phosphatase 107 U/L (38-126) 10/22/23 15:37
Most recent labs reviewed.
Micro Results:
10/22/23 15:36 Blood Culture - Preliminary
Blood/Venous No Growth in 48 hours- Final report to follow
10/22/23 15:41 Blood Culture - Preliminary
Blood/Venous No Growth in 48 hours- Final report to follow
10/23/23 06:20 MRSA Screen - Final
Nose No Methicillin Resistant Staphylococcus aureus isolated.
10/22/23 15:32 Influenza Types A & B (PRIYA) - Final
Nasal Swab Negative for Influenza A & B, NAAT
Negative results must be combined with clinical observations
and patient history.
Nucleic Acid Amplification test (NAAT)performed on the
[employer] platform.
Imaging:
10/22/2023 CXR (2 view): Right PICC terminates over the cavoatrial junction. Dual-lead pacemaker in place. Small bilateral pleural effusions are noted with associated consolidation. No overt pulmonary vascular congestion noted. Please see full
dictation for additional detail. Film personally viewed.
[2023-10-25 11:28] VITALS: BP 155/70
--- NOTE | 2023-10-25 13:49 | W.PN.HOSP.TC ---
Today's Communication/Plan
-
wrist xr
discharge planning for rehab
Assessment / Plan
Assessment / Plan
1. Fever episode - resolved
Lumbar spinal osteomyelitis
-Patient has been diagnosed for L4-L5 osteomyelitis at [facility] in , on IV vanc/aztreonam for 6 weeks - records requested
-Patient sent in from rehab for having recurrence episode of fever, patient declined to be transferred to [facility]
-UA clear. Flu/COVID neg. chest x-ray showing small bilateral effusion with associated atelectasis
-Blood culture neg so far.
-Possible differential of complication of osteomyelitis versus drug fever versus VTE related
-ID help appreciated, recommended to continue pre-admission abx regimen
-Cleared by ID for discharge.
2. Acute microcytic anemia - unknown baseline
-Hbg drifted down to 6.7 > 1 u prbc and hbg 8 > recheck in AM
-Have history of GERD, no history of PUD. Have endoscopy in the past although no records available
-Stool test neg. Ferritin 700 - ESR elevated 136 and likely anemia of chronic disease
-Monitor hbg - Eliquis resumed back today
3. Generalized weakness
-Required 2 person assistance per spouse, PT/OT eval ordered
-patient/family wants to try different rehab
4. RUE DVT
-recent dx, will resume Eliquis back if patient hbg stable.
5. Left wrist pain
- some minor swelling/synovial inflmmation with OA
- check xr and symptomatic care
Essential hypertension
Hyperlipidemia
Osteoporosis
Depression/anxiety
Insomnia
DVT PPX - scd
Full code
Obtain records from [facility]
Discharge planning for different rehab - needs 3 night stay and will be Monday morning.
Anticipated Discharge: 24 - 48 hours
Subjective/Interval History
-
Date of Service: October 25, 2023
afebrile in night
have some nausea / able to tolerate cheese hoagie for breakfast
complaining some left wrist pain / swelling
Objective Data
-
Vital Signs:
Vital Signs
Temp Pulse Resp BP Pulse Ox
98.3 F 92 17 155/70 95
10/25/23 07:00 10/25/23 08:13 10/25/23 07:00 10/25/23 11:28 10/25/23 07:00
I&O
10/24/23 10/25/23 10/26/23
06:59 06:59 06:59
Intake Total 1090 / 1090 1080 / 1080
Balance 1090 / 1090 1080 / 1080
Review of Systems
-
Respiratory: Reports No Symptoms
Cardiac: Reports No Symptoms
Abdomen/GI: Reports No Symptoms
Physical Exam
-
General: Appears Chronically Ill and Cachectic; Negative Respiratory Distress
HEENT: Oxygen
Respiratory: Clear to Auscultation
Cardiac: Regular Rhythm and S1/S2; Negative Murmur
GI: Soft, Nontender and Nondistended
Musculoskeletal: Other (Left wrist pain/swelling)
Neuro: Awake, Alert and Oriented
Psych: Calm
[2023-10-25] MEDS: TYLENOL 650 MG PO (14:29)
[2023-10-25 15:00] VITALS: BP 126/58
[2023-10-25] MEDS: MYCOSTATIN ORAL SUSPENSION PO ×3 (17:05→21:18)
[2023-10-25] MEDS: ELIQUIS 5 MG PO (21:08)
[2023-10-25] MEDS: RESTORIL 15 MG PO (21:08)
[2023-10-25] MEDS: SENOKOT-S PO ×2 (21:08→21:18)
[2023-10-25 23:00] VITALS: BP 124/47
[2023-10-26] MEDS: AZACTAM 2000 MG IV ×4 (01:06→22:43)
[2023-10-26] MEDS: STERILE WATER FOR INJECTION 10 ML IV ×4 (01:07→22:43)
[2023-10-26 04:47] LABS: Hemoglobin 7.9 g/dL (12.0-16.0); Mean Corp Hgb Conc. 32.9 g/dL (33.0-37.0); Mean Corpuscular Hgb 27.1 pg (27.0-31.0); Mean Corpuscular Volume 82.5 fL (81.0-99.0); Mean Platelet Volume 9.5 fL (7.4-10.4); Platelet Count 589 10^3/uL (130-400); Red Blood Cell Count 2.91 10^6/uL (4.20-5.40); Red Cell Dist. Width 15.7 % (11.5-14.5); White Blood Cell Count 9.9 10^3/uL (4.8-10.8)
[2023-10-26 05:12] LABS: Blood Urea Nitrogen 9 mg/dl (7-17); Calcium 8.6 mg/dl (8.4-10.2); Carbon Dioxide 29 mmol/L (22-30); Chloride 96 mmol/L (98-107); Estimated Creatinine Clearance 61 ml/min; Glucose 100 mg/dl (70-99); Sodium 129 mmol/L (135-145); eGFR > 60.00
[2023-10-26] MEDS: VANCOCIN 275 MG IV (05:49)
[2023-10-26 07:00] VITALS: BP 160/64
[2023-10-26] MEDS: ELIQUIS 5 MG PO ×2 (08:38→20:34)
[2023-10-26] MEDS: CYMBALTA DELAYED RELEASE 60 MG PO (08:38)
[2023-10-26] MEDS: FEOSOL 325 MG PO (08:38)
[2023-10-26] MEDS: PROTONIX 40 MG PO (08:38)
[2023-10-26] MEDS: LIPITOR 10 MG PO (08:38)
[2023-10-26] MEDS: COZAAR 100 MG PO (08:39)
[2023-10-26] MEDS: FLUSH (NSS) 2 FLUSH IV (08:42)
[2023-10-26] MEDS: MYCOSTATIN ORAL SUSPENSION PO ×4 (08:44→22:44)
--- NOTE | 2023-10-26 14:05 | W.PN.ID1 ---
Date of Service
Date of Service: October 26, 2023
Today's Communication
Continue abx.
Assessment / Plan
Episode of fever
- none since admission
Leukocytosis
- improved
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
- On Vanco / azactam (through 10/31/23 as per hx).
- Followed by [facility].
Elevated ESR
Anemia
Fibromyalgia
GERD
HTN
Dyslipidemia
MVP BS
Chronic pancreatitis
Osteoarthritis
DVT
Pleural effusion
Recommendations:
Continue with vancomycin and aztreonam for now.
Awaiting records from [facility] for review. Request faxed 3 days ago and again yesterday; not received as of yet.
Follow WBC / temps. Follow vancomycin levels.
Pt will need follow-up with [facility] following D/C.
Chief Complaint
-: Fever
Subjective / Review of Systems
Review of Systems: No Fever and No Chills
Vital Signs / Physical Exam
Vital Signs
Vital Signs
Temp Pulse Resp BP Pulse Ox
98.8 F 92 16 160/64 97
10/26/23 07:00 10/26/23 08:39 10/26/23 07:00 10/26/23 08:39 10/26/23 07:00
Physical Exam
Constitutional: No Acute Distress, Comfortable, Chronically Ill and Non-toxic
Cardiovascular: S1/S2; Negative S3/S4
Pulmonary: Clear and Non Labored; Negative Wheezes or Rales
Gastrointestinal: Soft, Non Tender and Non Distended
Objective Data
Lab Data
Lab Results
10/26/23 04:24
10/26/23 04:24
ESR 136 mm/hour (0-20) H 10/23/23 05:18
APTT 42.4 Sec (23.4-35.0) H 10/22/23 15:32
Estimated Creat Clear 61 ml/min 10/26/23 04:24
Lactic Acid 1.1 mmol/L (0.7-2.0) 10/22/23 15:37
Total Bilirubin 0.4 mg/dl (0.2-1.3) 10/22/23 15:37
AST 23 U/L (14-36) 10/22/23 15:37
ALT 13 U/L (0-35) 10/22/23 15:37
Alkaline Phosphatase 107 U/L (38-126) 10/22/23 15:37
Most recent labs reviewed.
Micro Results:
10/22/23 15:41 Blood Culture - Preliminary
Blood/Venous No Growth in 72 hours- Final report to follow
10/22/23 15:36 Blood Culture - Preliminary
Blood/Venous No Growth in 72 hours- Final report to follow
10/23/23 06:20 MRSA Screen - Final
Nose No Methicillin Resistant Staphylococcus aureus isolated.
10/22/23 15:32 Influenza Types A & B (PRIYA) - Final
Nasal Swab Negative for Influenza A & B, NAAT
Negative results must be combined with clinical observations
and patient history.
Nucleic Acid Amplification test (NAAT)performed on the
[employer] platform.
Imaging:
10/22/2023 CXR (2 view): Right PICC terminates over the cavoatrial junction. Dual-lead pacemaker in place. Small bilateral pleural effusions are noted with associated consolidation. No overt pulmonary vascular congestion noted. Please see full
dictation for additional detail. Film personally viewed.
[2023-10-26 14:35] VITALS: BP 159/75; PULSE 99; O2SAT 96
--- NOTE | 2023-10-26 14:39 | PHA.VAN.FU ---
Vancomycin Assessment / Plan
- Assessment
Renal Function: Stable
WBC's are: WNL
In the past 24 hrs, patient has been: Afebrile
Concomitant Antimicrobials: aztreonam
- Dosing Plan
Continue: Vanc 1250mg Q24H
- Monitoring Plan
Trough Level: 10/26 05:30 to assess with dose change
Monitoring Comments: may not fully be at steady state on new dosing regimen
- Follow Up
Pharmacy will continue to follow.
Vancomycin Follow UP
- -
Patient Age: 83
Patient Sex: Female
Vancomycin Day #: 13 (started 10/13 per med rec to complete 10/31)
Indication: Bone And Joint
Requesting Provider: Dr. Quinones
Pertinent Antimicrobial Allergies:
clindamycin - unknown
penicllins - unknown
Height / Weight:
Height 5 ft 6 in
Actual Weight 55.083 kg
IBW in k.3
Pertinent Past Medical History: BMI < 20
- Vital Signs / Lab Results
Temp Pulse Resp BP Pulse Ox
98.8 F 92 16 160/64 97
10/26/23 07:00 10/26/23 08:39 10/26/23 07:00 10/26/23 08:39 10/26/23 07:00
Lab Results - Hematology
10/24/23 10/26/23
05:59 04:24
WBC 9.1 9.9
Lab Results - Chemistry
10/26/23
04:24
BUN 9
Creatinine 0.4 L
Estimated Creat Clear 61
Microbiology Results
10/22/23 15:41 Blood Culture - Preliminary
Blood/Venous No Growth in 72 hours- Final report to follow
10/22/23 15:36 Blood Culture - Preliminary
Blood/Venous No Growth in 72 hours- Final report to follow
Therapeutic Drug Monitoring
Vancomycin Trough 9.0 ug/ml (5-20) 10/24/23 05:59
[2023-10-26 14:45] VITALS: BP 159/75; PULSE 99; O2SAT 96
--- NOTE | 2023-10-26 15:03 | W.PN.HOSP.TC ---
Today's Communication/Plan
-
KCl supplement
recheck labs in AM
Assessment / Plan
Assessment / Plan
1. Fever episode - resolved
Lumbar spinal osteomyelitis
-Patient has been diagnosed for L4-L5 osteomyelitis at [facility] in , on IV vanc/aztreonam for 6 weeks - records requested
-Patient sent in from rehab for having recurrence episode of fever, patient declined to be transferred to [facility]
-UA clear. Flu/COVID neg. chest x-ray showing small bilateral effusion with associated atelectasis
-Blood culture neg so far.
-Possible differential of complication of osteomyelitis versus drug fever versus VTE related
-ID help appreciated, recommended to continue pre-admission abx regimen
-Cleared by ID for discharge.
2. Acute microcytic anemia - unknown baseline
-Hbg drifted down to 6.7 > 1 u prbc and hbg 8 >10/25 Hgb 7.9
-Have history of GERD, no history of PUD. Have endoscopy in the past although no records available
-Stool test neg. Ferritin 700 - ESR elevated 136 and likely anemia of chronic disease
-Monitor hbg - Eliquis resumed back
3. Generalized weakness
-Required 2 person assistance per spouse, PT/OT eval ordered
-patient/family wants to try different rehab
4. RUE DVT
-recent dx, resumed Eliquis back if patient hbg stable.
5. Left wrist pain
- some minor swelling/synovial inflammation with OA
- Moderate first carpocarpal and carpometacarpal joint osteoarthritis.
6.hyponatremia
Na 128-->132-->129
mild fluid restriction
7.Hypokalemia 3.0-->3.7-->3.0
will start K supplement
Essential hypertension
Hyperlipidemia
Osteoporosis
Depression/anxiety
Insomnia
DVT PPX - scd
Full code
Obtain records from [facility]
Discharge planning for different rehab - needs 3 night stay and will be Monday morning.
Anticipated Discharge: Within 24 hours
Subjective/Interval History
-
Date of Service: October 26, 2023
Asking when being discharged
Objective Data
-
Labs:
Laboratory Results
10/26/23
04:24
WBC 9.9
Hgb 7.9 L
Hct 24.0 L
Plt Count 589 H
Sodium 129 L
Potassium 3.0 L
Chloride 96 L
Carbon Dioxide 29
BUN 9
Creatinine 0.4 L
Glucose 100 H
Calcium 8.6
Vital Signs:
Vital Signs
Temp Pulse Resp BP Pulse Ox
98.8 F 92 16 160/64 97
10/26/23 07:00 10/26/23 08:39 10/26/23 07:00 10/26/23 08:39 10/26/23 07:00
I&O
10/25/23 10/26/23 10/27/23
06:59 06:59 06:59
Intake Total 1080 / 1080 480 / 480
Balance 1080 / 1080 480 / 480
Review of Systems
-
History Source: Patient and Coordinated Provider
Constitutional: Denies Fever (afebrile since 10/21 @15:06)
EENT: Reports No Symptoms Reported
Respiratory: Reports No Symptoms
Cardiac: Reports No Symptoms
Abdomen/GI: Reports No Symptoms
Genitourinary: Reports No Symptoms
Neuro: Reports No Symptoms
Physical Exam
-
General: Well Developed, Well Nourished and No Apparent Distress
HEENT: Normocephalic, Atraumatic and Moist Mucous Membranes
Respiratory: Clear to Auscultation; Negative Wheezes, Rales or Rhonchi
Cardiac: Regular Rhythm and S1/S2
GI: Soft, Nontender and Nondistended
Musculoskeletal: No Clubbing, No Cyanosis and No Edema
Neuro: Awake, Alert and Oriented
--- NOTE | 2023-10-26 15:39 | CM ---
[facility] unable to accept - no beds. Will check with them in AM 10/26 regarding bed availability
[facility] - spoke with Cherelle at [facility] - reviewed referral, can accept pt tomorrow
Other facilities chosen currently do not have beds or are unable to take pts outside of facility
Spoke with pts daughter Carolyn. Aware mother accepted at [facility]. Will check in AM of bed availability at [facility]
Family prefers [facility]
Plan - SNF at d/c TBD when medically stable
[2023-10-26 16:00] VITALS: BP 169/70
[2023-10-26] MEDS: KCL 20 MEQ PO ×2 (16:00→22:42)
[2023-10-26] MEDS: DILAUDID 0.5 MG PO (20:33)
[2023-10-26] MEDS: RESTORIL 15 MG PO (22:43)
[2023-10-26] MEDS: SENOKOT-S PO (22:44)
[2023-10-26 23:35] VITALS: BP 152/58
[2023-10-27 05:32] LABS: Hematocrit 22.1 % (37.0-47.0); Hemoglobin 7.5 g/dL (12.0-16.0); Mean Corp Hgb Conc. 33.9 g/dL (33.0-37.0); Mean Corpuscular Hgb 27.5 pg (27.0-31.0); Mean Platelet Volume 8.9 fL (7.4-10.4); Platelet Count 635 10^3/uL (130-400); Red Blood Cell Count 2.73 10^6/uL (4.20-5.40); Red Cell Dist. Width 16.1 % (11.5-14.5); White Blood Cell Count 12.9 10^3/uL (4.8-10.8)
[2023-10-27 05:46] LABS: Vancomycin Trough 11.7 ug/ml (5-20)
[2023-10-27 05:57] LABS: Blood Urea Nitrogen 9 mg/dl (7-17); Calcium 8.5 mg/dl (8.4-10.2); Carbon Dioxide 27 mmol/L (22-30); Chloride 96 mmol/L (98-107); Estimated Creatinine Clearance 61 ml/min; Glucose 103 mg/dl (70-99); Magnesium 1.4 mg/dl (1.6-2.3); Potassium 3.3 mmol/L (3.5-5.1); Sodium 128 mmol/L (135-145); eGFR > 60.00
[2023-10-27] MEDS: VANCOCIN 275 MG IV (06:18)
[2023-10-27] MEDS: STERILE WATER FOR INJECTION 10 ML IV (06:19)
[2023-10-27] MEDS: AZACTAM 2000 MG IV (06:19)
--- NOTE | 2023-10-27 08:04 | W.PN.HOSP.TC ---
Today's Communication/Plan
-
discharge rehab
f/u with [facility]
Assessment / Plan
Assessment / Plan
1. Fever episode
Lumbar spinal osteomyelitis
-Patient has been diagnosed for L4-L5 osteomyelitis at [facility] in , on IV vanc/aztreonam for 6 weeks - records requested
-Patient sent in from rehab for having recurrence episode of fever, patient declined to be transferred to [facility]
-UA clear. Flu/COVID neg. chest x-ray showing small bilateral effusion with associated atelectasis
-Blood culture neg so far.
-Possible differential of complication of osteomyelitis versus drug fever versus VTE related
-ID help appreciated, recommended to continue pre-admission abx regimen
-Cleared by ID for discharge.
2. Acute microcytic anemia - unknown baseline
-Hbg drifted down to 6.7 > 1 u prbc and hbg 8 >3/21 Hgb 7.9
-Have history of GERD, no history of PUD. Have endoscopy in the past although no records available
-Stool test neg. Ferritin 700 - ESR elevated 136 and likely anemia of chronic disease
-Monitor hbg - Eliquis resumed back
3. Generalized weakness
-Required 2 person assistance per spouse, PT/OT evaluated and needs rehab
-patient/family wants to try different rehab - [facility] or [facility]
4. RUE DVT
-back on eliquis
5. Left wrist pain
- some minor swelling/synovial inflammation with OA
- Moderate first carpocarpal and carpometacarpal joint osteoarthritis.
6.hyponatremia
Na 128-->132-->129
mild fluid restriction
7.Hypokalemia
will start K supplement
Essential hypertension
Hyperlipidemia
Osteoporosis
Depression/anxiety
Insomnia
DVT PPX - scd
Full code
discharge rehab
Anticipated Discharge: Today
Subjective/Interval History
-
Date of Service: October 27, 2023
resting comfortable in bed
some nausea
mild temp of 100.3 F in night
no other reported issues
Objective Data
-
Labs:
Laboratory Results
10/27/23
05:18
WBC 12.9 H
Hgb 7.5 L
Hct 22.1 L
Plt Count 635 H
Sodium 128 L
Potassium 3.3 L
Chloride 96 L
Carbon Dioxide 27
BUN 9
Creatinine 0.4 L
Glucose 103 H
Calcium 8.5
Vital Signs:
Vital Signs
Temp Pulse Resp BP Pulse Ox
100.3 F 99 19 152/58 99
10/26/23 23:35 10/26/23 23:35 10/26/23 23:35 10/26/23 23:35 10/26/23 23:35
I&O
10/26/23 10/27/23 10/28/23
06:59 06:59 06:59
Intake Total 480 / 480 520 / 520
Balance 480 / 480 520 / 520
Review of Systems
-
Respiratory: Reports No Symptoms
Cardiac: Reports No Symptoms
Abdomen/GI: Reports No Symptoms
Physical Exam
-
General: Well Nourished and No Apparent Distress
HEENT: Negative Oxygen
Neuro: Awake, Alert, Oriented and No Motor Deficits
Psych: Calm
[2023-10-27 08:14] VITALS: BP 140/63
--- NOTE | 2023-10-27 08:33 | PHA.VAN.FU ---
Vancomycin Assessment / Plan
- Assessment
Renal Function: Stable
WBC's are: Trending Up
In the past 24 hrs, patient has been: Afebrile
Concomitant Antimicrobials: aztreonam
- Assessment - Trough Based Monitoring
Trough Value: 11.7
Level Today was: Appropriate, At Pre-Steady State
Level Comments: drawn ~23.5H after 2nd dose of new regimen
patient with appropriate accumulation following 2 doses and expected to remain in therapeutic range
- Dosing Plan
Continue: Vanc 1250mg Q24H
- Monitoring Plan
anticipated to complete course in next few days, likely no further levels necessary
- Follow Up
Pharmacy will continue to follow.
Vancomycin Follow UP
- -
Patient Age: 83
Patient Sex: Female
Vancomycin Day #: 14 (started 10/13 per med rec to complete 10/31)
Indication: Bone And Joint
Requesting Provider: Dr. Quinones
Pertinent Antimicrobial Allergies:
clindamycin - unknown
penicllins - unknown
Height / Weight:
Height 5 ft 6 in
Actual Weight 55.083 kg
IBW in k.3
Pertinent Past Medical History: BMI < 20
- Vital Signs / Lab Results
Temp Pulse Resp BP Pulse Ox
97.8 F 112 17 140/63 95
10/27/23 08:14 10/27/23 08:14 10/27/23 08:14 10/27/23 08:14 10/27/23 08:14
Lab Results - Hematology
10/26/23 10/27/23
04:24 05:18
WBC 9.9 12.9 H
Lab Results - Chemistry
10/26/23 10/27/23
04:24 05:18
BUN 9 9
Creatinine 0.4 L 0.4 L
Estimated Creat Clear 61 61
Microbiology Results
10/22/23 15:36 Blood Culture - Preliminary
Blood/Venous No Growth in 4 days- Final report to follow
10/22/23 15:41 Blood Culture - Preliminary
Blood/Venous No Growth in 4 days- Final report to follow
Therapeutic Drug Monitoring
Vancomycin Trough 11.7 ug/ml (5-20) 10/27/23 05:18
[2023-10-27] MEDS: LIPITOR 10 MG PO (08:52)
[2023-10-27] MEDS: FEOSOL 325 MG PO (08:52)
[2023-10-27] MEDS: ELIQUIS 5 MG PO (08:52)
[2023-10-27] MEDS: KCL 20 MEQ PO (08:52)
[2023-10-27] MEDS: COZAAR 100 MG PO (08:52)
[2023-10-27] MEDS: CYMBALTA DELAYED RELEASE 60 MG PO (08:53)
[2023-10-27] MEDS: PROTONIX 40 MG PO (08:53)
[2023-10-27] MEDS: MYCOSTATIN ORAL SUSPENSION PO ×2 (09:00→12:17)
--- NOTE | 2023-10-27 09:36 | CM ---
Addendum entered by Kristi Cummings 10/27/23 10:17:
Transport arranged for 1200. Facility notified. Called - LM on about transport time.
Chest xray sent in [facility] to confirm PICC line placement
Original Note:
Checked with Genia for ed availabilty at [facility] - no beds today
CM spoke with pts daughter Carolyn - aware no beds at [facility], pt does have bed at [facility]
Per Carolyn, she and her father agree to [facility]
Spoke with Cherelle at [facility] - given contact info for pts
Plan - [facility]
R - [phone], ext [phone]
- [phone]
--- NOTE | 2023-10-28 15:30 | W.DCSUMMARY ---
Discharge Summary
Discharge Data
Date of Admission: 10/24/23
Date of Discharge: 10/27/23
-
Pending Results: No
Hospital Course
Discharging Physician : Dr Leif Perales
Disposition : SNF rehab
Primary care physician : Dr Chau Singh
Principal Discharge diagnosis :
Fever episode
Lumbar spinal osteomyelitis
Acute on chronic microcytic anemia
Chronic Discharge diagnosis :
Recent right upper extremity deep venous thrombosis on Eliquis
Essential hypertension
Hyperlipidemia
Osteoporosis
Depression/anxiety
Insomnia
Hospital Course :
Patient is a 83-year-old female with above-mentioned past medical history came into ER for new episode of fever. Patient has been diagnosed for lumbar spinal osteomyelitis recently and has been started on IV antibiotics, patient was hospitalized
and having to [facility]. Post recovery patient was discharged to rehab from where patient presented to [place] ER for new onset of fever episodes. A quick septic workup with UA/COVID/flu/chest x-ray was negative for any acute
abnormality. Blood cultures were collected in ER which remain negative till discharge. ID was involved in care who recommended continue all of preadmission antibiotic regimen. Records from [facility] was requested although was not received
during this hospitalization. Patient fever episode subsided without any further intervention, ID recommended patient to follow-up with primary surgery/ID team with [facility] postdischarge.
Patient also had worsening anemia requiring blood transfusion. Patient denied of history of peptic ulcer disease/GI bleed. Patient does have some previous reflux disease and have EGD done in past although records unavailable. Patient required 1
unit of blood transfusion after which patient hemoglobin remained appropriate range. Stool was checked for occult blood and was negative. Patient is on Eliquis and needed to be held due to anemia, this was resumed back once concern of active bleed
was ruled out.
Important imaging findings :
None
Procedure findings :
None
Discharge Plan
-
Patient Disposition: Intermediate/SNF
Discharge Diagnosis/Procedures: Lumbar spinal osteomyelitis, Episodic nausea, Right arm DVT
Condition: Fair
Diet: Regular
Activity: As tolerated
Driving Restrictions: No driving
Bathing Restrictions: As per facility protocol
Other Services: VN and PT
Activity Restrictions/Additional Instructions:
Call for follow up with your primary [facility] physician
Referrals:
Chau Singh MD [Family Provider] - in one week
Chemo Quinones DO [Active] - (May schedule appointment if you would like to be seen in the [place] area.)
Prescriptions:
New
temazepam 15 mg capsule
15 mg PO HS PRN (Reason: Insomnia) Qty: 3 0RF
hydromorphone [Dilaudid] 2 mg tablet
1 mg PO Q6H PRN (Reason: Sev pain) Qty: 10 0RF
Continued
celecoxib 200 mg Capsule
200 mg PO DAILY
nystatin 100,000 unit/mL Suspension
5 ml PO QID
Rx Instructions:
10/22/2023, start date: 10/14/2023; end date: 10/24/2023.
acetaminophen [Tylenol] 325 mg Tablet
650 mg PO Q6H MDD 3000 mg PRN (Reason: temp 100F or above/mild pain)
atorvastatin 10 mg Tablet
10 mg PO DAILY
sennosides-docusate sodium 8.6-50 mg Tablet
2 tab-cap PO HS
vancomycin 1,000 mg Recon Soln
1 g IV DAILY
Rx Instructions:
10/22/2023, 250 ml NSS over 90 minutes at a rate of 166ml/hr; start date: 10/14/2023; end date: 11/01/2023.
magnesium hydroxide [Milk of Magnesia] 400 mg/5 mL Suspension
30 ml PO HSPRN PRN (Reason: if no BM x 2 days)
bisacodyl [Dulcolax (bisacodyl)] 10 mg Suppository
10 mg ID DAILY@0600 PRN (Reason: if no BM x 3 days)
pantoprazole 40 mg Tablet,Delayed Release (Dr/Ec)
40 mg PO DAILY
ferrous sulfate 325 mg (65 mg iron) Tablet
325 mg PO DAILY
Fleet Enema 19-7 gram/118 mL Enema
118 ml ID DAILYPRN PRN (Reason: if no BM x 4 days)
ipratropium bromide 42 mcg (0.06 %) [place],Non-Aerosol
2 spray INTRANASAL Q8HPRN PRN (Reason: allergic rhinitis)
losartan 100 mg Tablet
100 mg PO DAILY
dicyclomine 10 mg Capsule
10 mg PO [id number] PRN (Reason: IBS)
duloxetine 60 mg Capsule,Delayed Release(Dr/Ec)
60 mg PO DAILY
denosumab 60 mg/mL Syringe
60 mg SC [id number]
Patient Comments:
10/22/2023, next/last dose: 11/06/2023.
apixaban 5 mg Tablet
5 mg PO Q12H
Rx Instructions:
10/22/2023, start date: 10/13/2023; end date: 10/23/2023.
potassium chloride 20 mEq Tablet Extended Release
20 meq PO DAILY
Rx Instructions:
10/22/2023, start date: 10/14/2023; end date: 10/24/2023.
aztreonam 2 gram Recon Soln
2 g IV Q8H Qty: 0 0RF
Rx Instructions:
10/22/2023, 50 ml IVPB infuse at a rate of 100ml/hr over 30 minutes; start date: 10/13/2023; end date: 10/31/2023.
Discontinued
hydromorphone 2 mg Tablet
2 mg PO Q6H PRN (Reason: severe pain)
temazepam 15 mg Capsule
15 mg PO HS
hydrochlorothiazide 12.5 mg Tablet
12.5 mg PO DAILY
Discharge Orders:
Discharge Patient (As Directed); Ordered 10/27/23
Ordered By: Leif Perales
Discharge Date and Time
Discharge Date/Time: 10/27/23 13:26
== END 2023-10-27 13:26 | DRG 540 ==
LOC: 3 WEST ACU 14:07
PROVIDERS: Internal Medicine Infectious Disease; Nurse Practitioner; Nurse Practitioner Family; ADMITTING PHYSICIAN Internal Medicine; ATTENDING PHYSICIAN Hospitalist; CONSULT PHYSICIAN Internal Medicine Infectious Disease; EMERGENCY PHYSICIAN Emergency Medicine; FAMILY PHYSICIAN Internal Medicine
DX: M46.26 Osteomyelitis of vertebra, lumbar region (principal); E87.1 Hypo-osmolality and hyponatremia; I82.621 Acute embolism and thrombosis of deep veins of right upper extremity; I10 Essential (primary) hypertension; E78.00 Pure hypercholesterolemia, unspecified; M81.0 Age-related osteoporosis without current pathological fracture; G47.00 Insomnia, unspecified; E87.6 Hypokalemia; M19.032 Primary osteoarthritis, left wrist; Z79.01 Long term (current) use of anticoagulants
CPT/HCPCS: 71046; 73100; 80048; 80053; 80202; 81003; 81015; 82728; 83540; 83550; 83605; 83690; 83735; 84145; 85014; 85018; 85025; 85027; 85652; 85730; 86850; 86900; 86901; 86920; 87040; 87070; 87502; 87811; 93005; 96361; 96374; 97163; 97167; 97530; 97535; 99285; P9016